=== PATIENT | male | born 1970 | race Hispanic/Latino ===

== ENCOUNTER 2023-02-02 11:09 | Emergency (ER) | payer OTHER, SELFPAY ==
[2023-02-02] MEDS ORDERED: Cyclobenzaprine 10 MG TAB ONE (14:14)
[2023-02-02] MEDS ORDERED: Ibuprofen 200 MG TAB ONE (14:14)
== END 2023-02-02 14:38 | disposition home or self-care (01) ==
LOC: CSHERS 11:09
DX: M54.2 Cervicalgia (principal); R51.9 Headache, unspecified; M79.631 Pain in right forearm; V89.2XXA Person injured in unspecified motor-vehicle accident, traffic, initial encounter
CPT/HCPCS: 70450; 72125